=== PATIENT | male | born 1950 | race African-American/Black ===

== ENCOUNTER 2016-08-20 12:30 | Emergency (ER) | payer MEDICAID ==
[~2016-08-20] VITALS: Ht 182.9 cm; Wt 75.0 kg
[2016-08-20] MEDS ORDERED: SODIUM CHLORIDE 0.9% 1,000 ML IV ONE (12:51)
[2016-08-20] MEDS ORDERED: ACETAMINOPHEN 325MG TABLET PO ONE (13:00)
[2016-08-20 13:10] LABS: BASOPHILS % 0.4 % (0.0-2.0); HEMATOCRIT. 39.7 % (42.0-52.0); HEMOGLOBIN. 13.2 g/dL (14.0-18.0); LYMPHOCYTES % 15.1 % (20.0-50.0); MEAN CORPUSCULAR HEMOGLOBIN 29.8 pg (28.0-32.0); MEAN CORPUSCULAR HGB CONC 33.3 g/dL (31.0-37.0); MEAN CORPUSCULAR VOLUME 89.5 fL (80.0-94.0); MEAN PLATELET VOLUME 7.1 fl (7.4-10.4); MONOCYTES % 7.3 % (2.0-8.0); NEUTROPHILS % 65.2 % (40.0-76.0); PLATELET 235 x1000/uL (130-400); RED BLOOD CELL COUNT 4.43 mill/uL (4.7-6.1); RED CELL DISTRIBUTION WIDTH 14.9 % (11.6-14.6); WHITE BLOOD COUNT 8.2 x1000/uL (4.5-11.0)
[2016-08-20 13:17] LABS: CHLORIDE 109 mEq/L (98-107); INDEX HEMOLYSI 1 (1-3); INDEX ICTERIC 1 (1-4); INDEX LIPEMIC 1 (1-3)
[2016-08-20 13:26] LABS: ACETAMINOPHEN < 2 ug/mL (10-30); ALANINE AMINOTRANSFERASE 24 IU/L (13-61); ALBUMIN 3.1 g/dL (3.4-5.0); ANION GAP 10; CALCIUM 8.8 mg/dL (8.5-10.1); CARBON DIOXIDE 28 mEq/L (21-32); ETHANOL BLOOD < 10 mg/dL; TROPONIN I 0.04 ng/mL (0.00-0.04); UREA NITROGEN BLOOD 21 mg/dL (7-21); eGFR > 60 mL/min (>60)
[2016-08-20 15:17] LABS: CLARITY URINE TURBID (CLEAR); COLOR URINE YELLOW (YELLOW); GLUCOSE URINE NEGATIVE (NEGATIVE); KETONES URINE NEGATIVE (NEGATIVE); LEUKOCYTE ESTERASE URINE 2+ (NEGATIVE); NITRITE URINE NEGATIVE (NEGATIVE); OCCULT BLOOD URINE 1+ (NEGATIVE); PH URINE 8.5 (4.5-8.0); PROTEIN URINE NEGATIVE (NEGATIVE); SPECIFIC GRAVITY URINE 1.013 (1.005-1.030); UROBILINOGEN URINE 0.2 E.U./dL (0.2-1.0)
[2016-08-20 15:28] LABS: *AMPHETAMINES SCREEN URINE NEGATIVE (NEGATIVE); *BARBITURATES SCREEN URINE NEGATIVE (NEGATIVE); *BENZODIAZEPINES SCREEN URINE NEGATIVE (NEGATIVE); *COCAINE SCREEN URINE PRESUMTIVE POSITIVE (NEGATIVE); CANNABINOID URINE SCREEN NEGATIVE (NEGATIVE); ECSTASY MDMA SCREEN URINE NEGATIVE (NEGATIVE); METHADONE URINE SCREEN NEGATIVE (NEGATIVE); OPIATES URINE SCREEN NEGATIVE (NEGATIVE); PHENCYCLIDINE URINE SCREEN NEGATIVE (NEGATIVE)
[2016-08-20 15:45] LABS: BACTERIA URINE 4+; SQUAMOUS EPITHELIAL CELL URINE FEW /lpf (RARE/1+); TRIPLE PHOSPHATE CRYSTAL URINE 3+ /lpf
[2016-08-20] MEDS ORDERED: CEFTRIAXONE 1 G PREMIX 50 ML IV ONE (16:00)
[2016-08-20 17:49] VITALS: BP 128/81
== END 2016-08-20 17:53 | disposition home or self-care (01) ==
LOC: ER 12:35
DX: F14.129 Cocaine abuse with intoxication, unspecified (principal); N39.0 Urinary tract infection, site not specified; F12.10 Cannabis abuse, uncomplicated; F17.200 Nicotine dependence, unspecified, uncomplicated; Z79.899 Other long term (current) drug therapy
CPT/HCPCS: 36415; 70450; 71010; 80053; 80305; 80329; 81001; 84484; 85025; 93005; 96361; 96365; 99285; G0482; J0696; J7030; Z7610; 80307

== ENCOUNTER 2018-03-24 15:17 | Emergency (ER) | payer MEDICAID ==
[~2018-03-24] VITALS: Ht 180.3 cm; Wt 79.0 kg
[2018-03-24 15:25] VITALS: BP 102/68
== END 2018-03-24 20:22 | disposition left against medical advice (07) ==
LOC: ER 15:17
DX: R31.0 Gross hematuria (principal); Z53.21 Procedure and treatment not carried out due to patient leaving prior to being seen by health care provider

== ENCOUNTER 2018-07-27 15:48 | Emergency (ER) | payer MEDICAID ==
[~2018-07-27] VITALS: Ht 177.8 cm; Wt 80.0 kg
[2018-07-28] MEDS ORDERED: HYDROCODONE/ACETAMINOPHEN 5/325MG TABLET PO ONE (01:15)
[2018-07-28 02:04] LABS: BASOPHILS % 0.7 % (0.0-2.0); EOSINOPHILS % 11.8 % (0.0-5.0); HEMATOCRIT. 42.7 % (42.0-52.0); HEMOGLOBIN. 14.2 g/dL (14.0-18.0); LYMPHOCYTES % 18.2 % (20.0-50.0); MEAN CORPUSCULAR HEMOGLOBIN 29.9 pg (28.0-32.0); MEAN PLATELET VOLUME 7.6 fl (7.4-10.4); MONOCYTES % 8.6 % (2.0-8.0); NEUTROPHILS % 60.7 % (40.0-76.0); PLATELET 276 x1000/uL (130-400); RED BLOOD CELL COUNT 4.74 mill/uL (4.7-6.1); RED CELL DISTRIBUTION WIDTH 14.5 % (11.6-14.6)
[2018-07-28 02:12] LABS: CHLORIDE 108 mEq/L (98-107)
[2018-07-28] MEDS ORDERED: DIPHENHYDRAMINE 25MG CAPSULE PO ONE (07:00)
[2018-07-28 08:15] LABS: CLARITY URINE CLOUDY (CLEAR); COLOR URINE YELLOW (YELLOW); KETONES URINE NEGATIVE (NEGATIVE); LEUKOCYTE ESTERASE URINE 3+ (NEGATIVE); NITRITE URINE NEGATIVE (NEGATIVE); OCCULT BLOOD URINE NEGATIVE (NEGATIVE); PH URINE 8.5 (4.5-8.0); PROTEIN URINE 1+ (NEGATIVE); SPECIFIC GRAVITY URINE 1.014 (1.005-1.030); UROBILINOGEN URINE 0.2 E.U./dL (0.2-1.0)
[2018-07-28] MEDS ORDERED: PERMETHRIN 5% CREAM 60GM TOP ONE (10:45)
[2018-07-28 13:56] VITALS: BP 128/80
== END 2018-07-28 15:18 | disposition home or self-care (01) ==
LOC: ER 15:48
DX: R60.0 Localized edema (principal); B86 Scabies; Z59.0 Homelessness
CPT/HCPCS: 36415; 80048; 81003; 85025; 87086; 93970; 99284; Q0163; Z7610

== ENCOUNTER 2018-08-28 10:12 | Inpatient (IN) | payer MEDICAID ==
[~2018-08-28] VITALS: Ht 180.3 cm; Wt 81.6 kg
[2018-08-28] MEDS ORDERED: PIPERACILLIN/TAZ 3.375G PREMIX 50 ML IV ONE (10:45)
[2018-08-28] MEDS ORDERED: SODIUM CHLORIDE 0.9% 1000ML BAG (SEPSIS BOLUS) IV ONE (10:45)
[2018-08-28 11:10] LABS: CHLORIDE 111 mEq/L (98-107)
[2018-08-28 11:11] LABS: BASOPHILS % 0.6 % (0.0-2.0); HEMATOCRIT. 34.7 % (42.0-52.0); HEMOGLOBIN. 11.4 g/dL (14.0-18.0); LYMPHOCYTES % 13.5 % (20.0-50.0); MEAN CORPUSCULAR HEMOGLOBIN 29.8 pg (28.0-32.0); MEAN CORPUSCULAR VOLUME 90.8 fL (80.0-94.0); MEAN PLATELET VOLUME 7.1 fl (7.4-10.4); MONOCYTES % 9.9 % (2.0-8.0); PLATELET 267 x1000/uL (130-400); RED BLOOD CELL COUNT 3.82 mill/uL (4.7-6.1); RED CELL DISTRIBUTION WIDTH 15.3 % (11.6-14.6)
[2018-08-28 14:24] LABS: CLARITY URINE CLOUDY (CLEAR); COLOR URINE YELLOW (YELLOW); KETONES URINE NEGATIVE (NEGATIVE); LEUKOCYTE ESTERASE URINE 1+ (NEGATIVE); NITRITE URINE POSITIVE (NEGATIVE); OCCULT BLOOD URINE 1+ (NEGATIVE); PROTEIN URINE NEGATIVE (NEGATIVE); SPECIFIC GRAVITY URINE 1.012 (1.005-1.030)
[2018-08-28] MEDS ORDERED: ONDANSETRON HCL 4MG/2ML INJ IV PRN (18:00)
[2018-08-28] MEDS ORDERED: ACETAMINOPHEN 325MG TABLET PO PRN (18:00)
[2018-08-28] MEDS ORDERED: LEVOFLOXACIN 500MG PREMIX 100 ML IV NR (18:15)
[2018-08-29 04:00] VITALS: BP 118/68
[2018-08-29 04:35] VITALS: BP 118/68
[2018-08-29] MEDS: HYDROCODONE/ACETAMINOPHEN 5/325MG TABLET PO PRN ×3 (05:22→22:51)
[2018-08-29] MEDS: VANCOMYCIN 750 MG PREMIX 150 ML IV SCH ×2 (06:00→18:28)
[2018-08-29 07:03] LABS: BASOPHILS % 0.4 % (0.0-2.0); EOSINOPHILS % 7.4 % (0.0-5.0); HEMATOCRIT. 35.1 % (42.0-52.0); HEMOGLOBIN. 11.4 g/dL (14.0-18.0); LYMPHOCYTES % 18.8 % (20.0-50.0); MEAN CORPUSCULAR HEMOGLOBIN 29.8 pg (28.0-32.0); MEAN CORPUSCULAR VOLUME 91.8 fL (80.0-94.0); MEAN PLATELET VOLUME 7.3 fl (7.4-10.4); NEUTROPHILS % 62.4 % (40.0-76.0); PLATELET 249 x1000/uL (130-400); RED BLOOD CELL COUNT 3.82 mill/uL (4.7-6.1); RED CELL DISTRIBUTION WIDTH 15.4 % (11.6-14.6)
[2018-08-29 07:12] LABS: CHLORIDE 111 mEq/L (98-107)
[2018-08-29] MEDS: ENOXAPARIN 40MG/0.4ML SYR SUBCUT SCH (08:03)
[2018-08-29 08:14] VITALS: BP 111/57
[2018-08-29 10:07] LABS: *AMPHETAMINES SCREEN URINE NEGATIVE (NEGATIVE); *BARBITURATES SCREEN URINE NEGATIVE (NEGATIVE); *BENZODIAZEPINES SCREEN URINE NEGATIVE (NEGATIVE)
[2018-08-29 10:08] LABS: *COCAINE SCREEN URINE PRESUMTIVE POSITIVE (NEGATIVE); CANNABINOID URINE SCREEN PRESUMTIVE POSITIVE (NEGATIVE); METHADONE URINE SCREEN NEGATIVE (NEGATIVE); OPIATES URINE SCREEN NEGATIVE (NEGATIVE); PHENCYCLIDINE URINE SCREEN NEGATIVE (NEGATIVE)
[2018-08-29 12:57] VITALS: BP 131/70
[2018-08-29 16:17] VITALS: BP 115/67
[2018-08-29] MEDS: NICOTINE 14MG PATCH TD SCH (17:56)
[2018-08-29] MEDS ORDERED: LEVOFLOXACIN 500MG PREMIX 100 ML IV SCH (18:00)
[2018-08-29 19:45] VITALS: BP 128/77
[2018-08-30 00:14] VITALS: BP 126/66
[2018-08-30 04:10] VITALS: BP 112/69
[2018-08-30] MEDS: VANCOMYCIN 750 MG PREMIX 150 ML IV SCH ×2 (06:28→19:34)
[2018-08-30 08:31] VITALS: BP 113/75
[2018-08-30] MEDS: NICOTINE 14MG PATCH TD SCH (09:00)
[2018-08-30] MEDS: ENOXAPARIN 40MG/0.4ML SYR SUBCUT SCH (09:45)
[2018-08-30] MEDS: HYDROCODONE/ACETAMINOPHEN 5/325MG TABLET PO PRN ×2 (09:46→20:23)
[2018-08-30 12:16] VITALS: BP 130/73
[2018-08-30] MEDS ORDERED: MORPHINE SULFATE 4 MG/ML CPJ (NOT FOR IM USE) IV NR (12:30)
[2018-08-30 15:47] VITALS: BP 99/47
[2018-08-30 20:00] VITALS: BP 104/66
[2018-08-31] VITALS: BP 115/74
[2018-08-31 04:00] VITALS: BP 119/65
[2018-08-31] MEDS: VANCOMYCIN 750 MG PREMIX 150 ML IV SCH (05:03)
[2018-08-31 07:44] LABS: CHLORIDE 105 mEq/L (98-107)
[2018-08-31 07:53] LABS: VANCOMYCIN TROUGH 9.3 ug/mL (5.0-10.0)
[2018-08-31 08:00] VITALS: BP 103/54
[2018-08-31] MEDS: NICOTINE 14MG PATCH TD SCH (09:00)
[2018-08-31] MEDS: ENOXAPARIN 40MG/0.4ML SYR SUBCUT SCH (09:53)
[2018-08-31 12:03] VITALS: BP 105/64
[2018-08-31 16:00] VITALS: BP_SYST 105; BP_SYST 124; BP_DIAS 64; BP_DIAS 75
[2018-08-31] MEDS ORDERED: VANCOMYCIN 1 G PREMIX 200 ML IV SCH (17:00)
== END 2018-08-31 17:10 | disposition home health service (06) | DRG 383 ==
LOC: ER 10:12 → 6WST 12:59 → EDBEDREQ 13:01 → EDBEDREQSVC 13:01 → EDBEDREQ 18:55 → EDBEDREQSVC 18:55 → ENRESERV 08-29 02:45
PROVIDERS: ADMIT Internal Medicine; ATTEND Internal Medicine
DX: L03.115 Cellulitis of right lower limb (principal); E44.1 Mild protein-calorie malnutrition; E87.8 Other disorders of electrolyte and fluid balance, not elsewhere classified; D64.9 Anemia, unspecified; N39.0 Urinary tract infection, site not specified; F12.10 Cannabis abuse, uncomplicated; F14.10 Cocaine abuse, uncomplicated; F17.200 Nicotine dependence, unspecified, uncomplicated; Z59.0 Homelessness; Z71.51 Drug abuse counseling and surveillance of drug abuser; Z71.6 Tobacco abuse counseling; Z90.49 Acquired absence of other specified parts of digestive tract; Z68.25 Body mass index [BMI] 25.0-25.9, adult
CPT/HCPCS: 36415; 73630; 80048; 80202; 80305; 83036; 83605; 93005; 93971; 96374; 97162; 99285; J1650; J1956; J2270; J2543; J3370; J7030; J7040

== ENCOUNTER 2018-11-14 01:51 | Emergency (ER) | payer MEDICAID ==
[~2018-11-14] VITALS: Ht 180.3 cm; Wt 78.0 kg
[2018-11-14] MEDS ORDERED: ASPIRIN 81MG TABLET PO ONE (02:45)
[2018-11-14 03:09] LABS: CHLORIDE 111 mEq/L (98-107)
[2018-11-14 03:12] LABS: BASOPHILS % 0.5 % (0.0-2.0); EOSINOPHILS % 2.9 % (0.0-5.0); HEMATOCRIT. 37.8 % (42.0-52.0); HEMOGLOBIN. 13.1 g/dL (14.0-18.0); LYMPHOCYTES % 29.1 % (20.0-50.0); MEAN CORPUSCULAR HEMOGLOBIN 30.6 pg (28.0-32.0); MEAN CORPUSCULAR VOLUME 88.4 fL (80.0-94.0); MEAN PLATELET VOLUME 7.3 fl (7.4-10.4); MONOCYTES % 8.7 % (2.0-8.0); NEUTROPHILS % 58.8 % (40.0-76.0); PLATELET 244 x1000/uL (130-400); RED BLOOD CELL COUNT 4.27 mill/uL (4.7-6.1); RED CELL DISTRIBUTION WIDTH 14.5 % (11.6-14.6)
[2018-11-14 03:14] LABS: ETHANOL BLOOD < 10 mg/dL
[2018-11-14 04:44] LABS: *AMPHETAMINES SCREEN URINE NEGATIVE (NEGATIVE); *BARBITURATES SCREEN URINE NEGATIVE (NEGATIVE)
[2018-11-14 04:45] LABS: *BENZODIAZEPINES SCREEN URINE NEGATIVE (NEGATIVE); *COCAINE SCREEN URINE PRESUMTIVE POSITIVE (NEGATIVE); METHADONE URINE SCREEN NEGATIVE (NEGATIVE); OPIATES URINE SCREEN NEGATIVE (NEGATIVE); PHENCYCLIDINE URINE SCREEN NEGATIVE (NEGATIVE)
[2018-11-14 04:46] LABS: CANNABINOID URINE SCREEN PRESUMTIVE POSITIVE (NEGATIVE)
[2018-11-14 05:14] VITALS: BP 133/79
== END 2018-11-14 05:40 | disposition home or self-care (01) ==
LOC: ER 01:51
DX: R07.89 Other chest pain (principal); F14.10 Cocaine abuse, uncomplicated; F17.210 Nicotine dependence, cigarettes, uncomplicated
CPT/HCPCS: 36415; 71045; 80053; 80305; 80320; 83880; 84484; 85025; 93005; 99284; Z7610; G0480

== ENCOUNTER 2019-02-24 05:55 | Inpatient (IN) | payer MEDICAID ==
[~2019-02-24] VITALS: Ht 175.3 cm; Wt 78.9 kg
[2019-02-24] MEDS ORDERED: MORPHINE SULFATE 4 MG/ML CPJ (NOT FOR IM USE) IV STA (07:11)
[2019-02-24] MEDS ORDERED: SODIUM CHLORIDE 0.9% 1,000 ML IV ONE (07:11)
[2019-02-24] MEDS ORDERED: ONDANSETRON HCL 4MG/2ML INJ IV STA (07:11)
[2019-02-24 07:30] LABS: CLARITY URINE TURBID (CLEAR); COLOR URINE YELLOW (YELLOW); KETONES URINE NEGATIVE (NEGATIVE); LEUKOCYTE ESTERASE URINE 3+ (NEGATIVE); NITRITE URINE NEGATIVE (NEGATIVE); OCCULT BLOOD URINE 2+ (NEGATIVE); PROTEIN URINE 3+ (NEGATIVE); SPECIFIC GRAVITY URINE 1.011 (1.005-1.030); UROBILINOGEN URINE 0.2 E.U./dL (0.2-1.0)
[2019-02-24 07:56] LABS: *AMPHETAMINES SCREEN URINE NEGATIVE (NEGATIVE); *BARBITURATES SCREEN URINE NEGATIVE (NEGATIVE); *BENZODIAZEPINES SCREEN URINE NEGATIVE (NEGATIVE); *COCAINE SCREEN URINE PRESUMTIVE POSITIVE (NEGATIVE)
[2019-02-24 07:57] LABS: CANNABINOID URINE SCREEN NEGATIVE (NEGATIVE); METHADONE URINE SCREEN NEGATIVE (NEGATIVE); OPIATES URINE SCREEN NEGATIVE (NEGATIVE); PHENCYCLIDINE URINE SCREEN NEGATIVE (NEGATIVE)
[2019-02-24] MEDS ORDERED: CEFTRIAXONE 1 G PREMIX 50 ML IV ONE (09:00)
[2019-02-24 09:13] LABS: BASOPHILS % 0.4 % (0.0-2.0); EOSINOPHILS % 0.1 % (0.0-5.0); LYMPHOCYTES % 20.4 % (20.0-50.0); MEAN CORPUSCULAR HEMOGLOBIN 29.9 pg (28.0-32.0); MEAN CORPUSCULAR VOLUME 89.5 fL (80.0-94.0); MEAN PLATELET VOLUME 6.6 fl (7.4-10.4); MONOCYTES % 14.1 % (2.0-8.0); PLATELET 286 x1000/uL (130-400); RED BLOOD CELL COUNT 4.03 mill/uL (4.7-6.1)
[2019-02-24 09:16] LABS: CHLORIDE 109 mEq/L (98-107)
[2019-02-24] MEDS ORDERED: MORPHINE SULFATE 4 MG/ML CPJ (NOT FOR IM USE) IV ONE (09:45)
[2019-02-24] MEDS ORDERED: ASPIRIN 81MG TABLET PO ONE (12:45)
[2019-02-24 14:00] VITALS: BP 99/56
[2019-02-24 14:30] VITALS: BP 99/56
[2019-02-24 16:00] VITALS: BP 97/57
[2019-02-24] MEDS ORDERED: ONDANSETRON HCL 4MG/2ML INJ IV PRN (19:00)
[2019-02-24] MEDS ORDERED: CLONIDINE 0.1MG TABLET PO PRN (19:00)
[2019-02-24] MEDS ORDERED: GUAIFENESIN 200MG/10ML SUGAR FREE UDC PO PRN (19:00)
[2019-02-24] MEDS ORDERED: IPRATROPIUM/ALBUTEROL 0.5-3(2.5)MG/3ML NEB NEB PRN (19:00)
[2019-02-24] MEDS: ACETAMINOPHEN 325MG TABLET PO PRN (19:56)
[2019-02-24] MEDS: SODIUM CHLORIDE 0.9% 1,000 ML IV SCH (19:57)
[2019-02-24 20:00] VITALS: BP 104/57
[2019-02-24] MEDS: METHYLPREDNISOLONE SOD SUCC 40 MG/ML VIAL IV SCH (23:04)
[2019-02-24] MEDS: ENOXAPARIN 40MG/0.4ML SYR SUBCUT SCH (23:04)
[2019-02-25] VITALS: BP 90/46
[2019-02-25] MEDS: ACETAMINOPHEN 325MG TABLET PO PRN (00:10)
[2019-02-25] MEDS: IPRATROPIUM/ALBUTEROL 0.5-3(2.5)MG/3ML NEB HHN SCH ×6 (00:20→20:40)
[2019-02-25] MEDS: MORPHINE SULFATE 2 MG/ML CPJ (NOT FOR IM USE) IV PRN ×4 (03:53→22:32)
[2019-02-25 04:00] VITALS: BP 114/72
[2019-02-25] MEDS: METHYLPREDNISOLONE SOD SUCC 40 MG/ML VIAL IV SCH ×3 (06:08→21:19)
[2019-02-25 08:00] VITALS: BP 99/57
[2019-02-25 08:01] LABS: BASOPHILS % 0.5 % (0.0-2.0); HEMATOCRIT. 34.5 % (42.0-52.0); HEMOGLOBIN. 11.6 g/dL (14.0-18.0); LYMPHOCYTES % 19.3 % (20.0-50.0); MEAN CORPUSCULAR HEMOGLOBIN 30.1 pg (28.0-32.0); MEAN CORPUSCULAR VOLUME 89.1 fL (80.0-94.0); MEAN PLATELET VOLUME 7.1 fl (7.4-10.4); MONOCYTES % 3.8 % (2.0-8.0); NEUTROPHILS % 76.4 % (40.0-76.0); PLATELET 286 x1000/uL (130-400); RED BLOOD CELL COUNT 3.87 mill/uL (4.7-6.1); RED CELL DISTRIBUTION WIDTH 13.9 % (11.6-14.6)
[2019-02-25] MEDS: SODIUM CHLORIDE 0.9% 1,000 ML IV SCH (08:57)
[2019-02-25] MEDS: CEFTRIAXONE 1 G PREMIX 50 ML IV SCH (08:57)
[2019-02-25 12:00] VITALS: BP 107/66
[2019-02-25 16:00] VITALS: BP 107/52
[2019-02-25] MEDS ORDERED: CEFTRIAXONE 1 G PREMIX 50 ML IV SCH (18:00)
[2019-02-25 20:00] VITALS: BP 118/59
[2019-02-25] MEDS: ENOXAPARIN 40MG/0.4ML SYR SUBCUT SCH (21:07)
[2019-02-25] MEDS: MICONAZOLE NITRATE 2% OINT 71GM TOP SCH (21:08)
[2019-02-26] VITALS: BP 118/53
[2019-02-26] MEDS: IPRATROPIUM/ALBUTEROL 0.5-3(2.5)MG/3ML NEB HHN SCH ×6 (01:15→20:00)
[2019-02-26] MEDS: SODIUM CHLORIDE 0.9% 1,000 ML IV SCH ×2 (01:23→17:18)
[2019-02-26 04:00] VITALS: BP 93/49
[2019-02-26] MEDS: MORPHINE SULFATE 2 MG/ML CPJ (NOT FOR IM USE) IV PRN ×5 (04:41→23:13)
[2019-02-26] MEDS: METHYLPREDNISOLONE SOD SUCC 40 MG/ML VIAL IV SCH ×3 (06:00→22:00)
[2019-02-26 07:03] LABS: BASOPHILS % 0.1 % (0.0-2.0); HEMATOCRIT. 32.7 % (42.0-52.0); HEMOGLOBIN. 11.1 g/dL (14.0-18.0); LYMPHOCYTES % 13.9 % (20.0-50.0); MEAN CORPUSCULAR HEMOGLOBIN 30.2 pg (28.0-32.0); MEAN CORPUSCULAR VOLUME 89.1 fL (80.0-94.0); MEAN PLATELET VOLUME 7.1 fl (7.4-10.4); MONOCYTES % 12.2 % (2.0-8.0); NEUTROPHILS % 73.8 % (40.0-76.0); PLATELET 322 x1000/uL (130-400); RED BLOOD CELL COUNT 3.67 mill/uL (4.7-6.1); RED CELL DISTRIBUTION WIDTH 13.6 % (11.6-14.6)
[2019-02-26 07:23] LABS: CHLORIDE 108 mEq/L (98-107)
[2019-02-26 08:00] VITALS: BP 108/59
[2019-02-26] MEDS: CEFTRIAXONE 1 G PREMIX 50 ML IV SCH (09:08)
[2019-02-26] MEDS: MICONAZOLE NITRATE 2% OINT 71GM TOP SCH ×2 (09:09→22:46)
[2019-02-26 12:00] VITALS: BP 92/51
[2019-02-26 16:00] VITALS: BP 108/47
[2019-02-26] MEDS: MUPIROCIN 2% OINT 22GM NS SCH ×2 (17:18→22:46)
[2019-02-26 20:00] VITALS: BP 116/74
[2019-02-26] MEDS: ENOXAPARIN 40MG/0.4ML SYR SUBCUT SCH (20:00)
[2019-02-27] VITALS: BP 129/72
[2019-02-27 04:00] VITALS: BP 102/55
[2019-02-27] MEDS: METHYLPREDNISOLONE SOD SUCC 40 MG/ML VIAL IV SCH ×3 (06:00→22:00)
[2019-02-27] MEDS: IPRATROPIUM/ALBUTEROL 0.5-3(2.5)MG/3ML NEB HHN SCH ×4 (08:48→21:16)
[2019-02-27 10:31] VITALS: BP 104/71
[2019-02-27] MEDS: MORPHINE SULFATE 2 MG/ML CPJ (NOT FOR IM USE) IV PRN ×2 (10:31→17:17)
[2019-02-27] MEDS: MUPIROCIN 2% OINT 22GM NS SCH ×2 (10:41→21:00)
[2019-02-27] MEDS: CEFTRIAXONE 1 G PREMIX 50 ML IV SCH (10:41)
[2019-02-27] MEDS: SODIUM CHLORIDE 0.9% 1,000 ML IV SCH ×2 (10:42→13:49)
[2019-02-27] MEDS: MICONAZOLE NITRATE 2% OINT 71GM TOP SCH ×2 (10:43→21:00)
[2019-02-27 12:00] VITALS: BP 105/71
[2019-02-27 16:00] VITALS: BP_SYST 104; BP_SYST 110; BP_DIAS 47; BP_DIAS 70
[2019-02-27 20:00] VITALS: BP 107/77
[2019-02-27] MEDS: ENOXAPARIN 40MG/0.4ML SYR SUBCUT SCH (20:00)
[2019-02-28] VITALS: BP 121/80
[2019-02-28] MEDS: IPRATROPIUM/ALBUTEROL 0.5-3(2.5)MG/3ML NEB HHN SCH ×8 (00:50→21:29)
[2019-02-28] MEDS: SODIUM CHLORIDE 0.9% 1,000 ML IV SCH (01:26)
[2019-02-28 04:12] LABS: HIV SCREEN 4G Non Reactive (Non Reactive)
[2019-02-28] MEDS: METHYLPREDNISOLONE SOD SUCC 40 MG/ML VIAL IV SCH ×3 (06:00→21:44)
[2019-02-28] MEDS: MUPIROCIN 2% OINT 22GM NS SCH ×2 (09:00→21:00)
[2019-02-28] MEDS: MICONAZOLE NITRATE 2% OINT 71GM TOP SCH ×2 (09:00→21:00)
[2019-02-28 09:49] VITALS: BP 112/71
[2019-02-28] MEDS: MORPHINE SULFATE 2 MG/ML CPJ (NOT FOR IM USE) IV PRN (09:49)
[2019-02-28] MEDS: CEFTRIAXONE 1 G PREMIX 50 ML IV SCH (09:53)
[2019-02-28 12:00] VITALS: BP 88/59
[2019-02-28] MEDS ORDERED: TRAMADOL 50MG TABLET PO PRN (15:30)
[2019-02-28 16:00] VITALS: BP 89/62
[2019-02-28] MEDS ORDERED: PHENAZOPYRIDINE HCL 100MG TABLET PO SCH (17:15)
[2019-02-28 20:00] VITALS: BP 98/61
[2019-02-28] MEDS: ENOXAPARIN 40MG/0.4ML SYR SUBCUT SCH (20:00)
[2019-03-01 05:00] VITALS: BP 98/61
[2019-03-02 09:06] LABS: *HIV-1 RNA BY PCR <20 copies/mL (.)
== END 2019-03-01 06:15 | disposition home or self-care (01) | DRG 140 ==
LOC: ER 05:55 → 5WST 12:13 → ENRESERV 12:49
PROVIDERS: ADMIT Internal Medicine; ATTEND Internal Medicine
DX: J44.1 Chronic obstructive pulmonary disease with (acute) exacerbation (principal); N17.9 Acute kidney failure, unspecified; E44.0 Moderate protein-calorie malnutrition; E88.09 Other disorders of plasma-protein metabolism, not elsewhere classified; N28.1 Cyst of kidney, acquired; N39.0 Urinary tract infection, site not specified; K80.20 Calculus of gallbladder without cholecystitis without obstruction; F14.10 Cocaine abuse, uncomplicated; F17.200 Nicotine dependence, unspecified, uncomplicated; N32.9 Bladder disorder, unspecified; D64.9 Anemia, unspecified; F12.90 Cannabis use, unspecified, uncomplicated; Z59.0 Homelessness
CPT/HCPCS: 36415; 71045; 74176; 76857; 80048; 80305; 81003; 84484; 87070; 87389; 87430; 87536; 93005; 93971; 94640; 99285; J0696; J1650; J2270; J2405; J2920; J7030; J7620

== ENCOUNTER 2019-05-16 11:11 | Emergency (ER) | payer MEDICAID ==
[~2019-05-16] VITALS: Ht 172.7 cm; Wt 81.0 kg
[2019-05-16 11:13] VITALS: BP 147/86
== END 2019-05-16 20:16 | disposition left against medical advice (07) ==
LOC: ER 11:11
DX: J00 Acute nasopharyngitis [common cold] (principal); Z53.21 Procedure and treatment not carried out due to patient leaving prior to being seen by health care provider

== ENCOUNTER 2019-05-27 10:56 | Emergency (ER) | payer MEDICAID ==
[~2019-05-27] VITALS: Ht 177.8 cm; Wt 99.0 kg
[2019-05-27] MEDS ORDERED: KETOROLAC 60MG/2ML VIAL IM ONE (12:45)
[2019-05-27 16:11] VITALS: BP 122/78
== END 2019-05-27 16:11 | disposition home or self-care (01) ==
LOC: ER 10:56
DX: M79.671 Pain in right foot (principal)
CPT/HCPCS: 73630; 96372; 99283; J1885

== ENCOUNTER 2021-05-05 15:09 | Emergency (ER) | payer MEDICARE, MEDICAID ==
[~2021-05-05] VITALS: Ht 175.3 cm; Wt 73.0 kg
[2021-05-05 15:16] VITALS: BP 141/68
[2021-05-05 17:21] LABS: BASOPHILS % 0.6 % (0.0-2.0); EOSINOPHILS % 2.8 % (0.0-5.0); HEMATOCRIT. 41.2 % (42.0-52.0); HEMOGLOBIN. 13.5 g/dL (14.0-18.0); LYMPHOCYTES % 19.3 % (20.0-50.0); MEAN CORPUSCULAR HEMOGLOBIN 29.5 pg (28.0-32.0); MEAN CORPUSCULAR VOLUME 89.9 fL (80.0-94.0); MEAN PLATELET VOLUME 7.1 fl (7.4-10.4); MONOCYTES % 6.6 % (2.0-8.0); NEUTROPHILS % 70.7 % (40.0-76.0); PLATELET 258 x1000/uL (130-400); RED BLOOD CELL COUNT 4.58 mill/uL (4.7-6.1); RED CELL DISTRIBUTION WIDTH 15.2 % (11.6-14.6)
[2021-05-05 17:29] LABS: CHLORIDE 113 mEq/L (98-107)
[2021-05-05 17:32] LABS: PARTIAL THROMBOPLASTIN TIME 28.8 sec (23.4-31.0); PROTHROMBIN TIME 10.4 sec (9.6-11.0)
== END 2021-05-05 18:35 | disposition home or self-care (01) ==
LOC: ER 15:09
DX: R04.0 Epistaxis (principal); R42 Dizziness and giddiness
CPT/HCPCS: 36415; 80053; 85025; 93005; 99284